=== PATIENT | female | born 2000 | race Caucasian/White ===

== ENCOUNTER 2024-12-01 11:35 | Inpatient (IN) ==
[2024-12-01] MEDS ORDERED: OXYTOCIN 30 UNITS/NSS 30 UNITS/500 ML BAG IV PRN (12:33)
[2024-12-01] MEDS ORDERED: LIDOCAINE 1% LOCAL 20 ML VIAL INFIL PRN (12:33)
[2024-12-01 13:10] LABS: Hematocrit (blood only) 36.3 % (37.0-47.0); Hemoglobin 12.3 g/dl (12.0-16.0); Mean Corpuscular Hemoglobin 31.1 pg (25.0-34.0); Mean Corpuscular Volume 91.7 fL (80.0-100.0); Platelet Count 189 K/uL (130-400); RDW Standard Deviation 47.3 fL (36.4-46.3); Red Blood Count 3.96 M/uL (4.20-5.40); White Blood Count 9.74 K/ul (4.8-10.8)
[2024-12-01] MEDS: LACTATED RINGER'S 1,000 ML IV PRN (13:12)
[2024-12-01] MEDS: OXYTOCIN 30 UNITS/NSS 30 UNITS/500 ML BAG IV PRN (13:25)
--- NOTE | 2024-12-01 13:29 | History & Physical Report ---
Date of Service December 01, 2024 Assessment & Plan (1) Normal labor: Plan: Pt is a at 38w 6d with hx of preeclampsia presenting for induction of labor Hx of delivery and preeclampsia in previous Routine labs ordered Pitocin ordered Epidural placement ordered Monitor tracing Expectant managment for labor Hep B nonimmune: Hep B vax recommended Admission and Anticipated Discharge Date Admission Date: December 01, 2024 History of Present Illness Primary Care Provider: Giana Earl MD Nic is a 24y/o female currently at 38w 6d with an MILAGROS 12/09/24 who is here for BP check and will be admitted for induction of labor. Her is complicated by hx of preeclampsia and delivery in previous . Currently not experiencing contractions; adequate movement; no fluid loss; no bloody show External FHT and external uterine monitors used; Category 1 tracing; FHT 130bpm with moderate variability, accelerations present, decelerations absent Had regular appointments with OB. Labs Lab Results OB Labs: Hgb 12.8 g/dl (12.0-16.0) 11/30/24 Hct 38.8 % (37.0-47.0) 11/30/24 MCV 93.9 fL (80.0-100.0) 11/30/24 Plt Count 185 K/uL (130-400) 11/30/24 Treponema pallidum Ab Negative (Negative) 09/18/24 Glucose 1 Hr 50 gm 144 mg/dl (70-130) H 09/18/24 OB Optional Labs: No Data to Display Labs Reviewed: Initial OB Labs 05/26/24 Blood Type & RH O positive Antibody Screen negative HCT/HGB 39.9/13.2 Platelets 287 Hep C IgG 13yrs+ Old non-reactive Pap Test per notes neg 12/2021 Chlamydia negative Gonorrhea negative Rubella immune RPR non-reactive Urine Culture/Screen 10,000-50,000 mixed shamir HBsAg non-reactive HIV non-reactive MCV 93.2 Other screens: cff-DNA: low risk as per patient Cystic Fibrosis: neg SMA: neg Review of Systems : Denies fever, chills, sweats Denies shortness of breath, difficulty breathing, chest pain, palpitations, chest pressure. Denies breast pain. Denies dysuria. Denies headache or changes in vision. Allergies Allergy/AdvReac Type Severity Reaction Status Date / Time apple Allergy Intermediate Swelling Verified 12/01/24 10:52 of Lip/Tongue/Throat carrot Allergy Intermediate Swelling Verified 12/01/24 10:52 of Lip/Tongue/Throat Horse/Equine Containing Allergy Intermediate Hives Verified 12/01/24 10:52 Products kiwi Allergy Intermediate Swelling Verified 12/01/24 10:52 of Lip/Tongue/Throat pollen extracts Allergy Mild Sneezing Verified 12/01/24 10:52 apple juice AdvReac Intermediate Agitated Uncoded 12/01/24 10:52 Home Medications Medication Instructions Recorded Confirmed Type aspirin 81 mg chewable tablet 81 mg PO DAILY 12/01/24 12/01/24 History (Aspirin Childrens) loratadine 10 mg tablet (Claritin) 10 mg PO DAILY 12/01/24 12/01/24 History vits no.124-ferrous fum 1 tab PO DAILY 12/01/24 12/01/24 History 27 mg iron-folic acid 800 mcg tablet ( Vitamin) Patient History Medical History Varicella vaccination 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) Migraine without aura and without status migrainosus, not intractable (08/06/16) Allergic rhinitis (08/20/15) ADHD (attention deficit hyperactivity disorder), 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) Surgical History S/P breast biopsy S/P wisdom tooth extraction Family History Mother Crohn's disease Grandmother (Maternal) Diabetes Father Hypercholesteremia Denies family history of Ovarian cancer Breast cancer Colorectal cancer Social History (Updated 11/30/24 @ 12:43 by Maria Isabel Vo RN) Smoking Status: Current every day smoker Tobacco Type: E-cigarettes / Vaping Do You Dip or Chew Tobacco: No; Hx Alcohol Use: No Hx Substance Use: No Preferred Language: New Zealander Communication Ability: Effective Hearing Ability: Normal Retail Consultant Required: No Beliefs That Will Affect Care: None marital status: marital status details: Linda Moraescarlton (27) [phone] Current Living Situation: Spouse and Family Current Living Situation Comment: lives with spouse, son, dogs, cats-spouse changing litter current occupational status: employed 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 Skin: warm, dry, intact HEENT: NC/AT, anicteric sclera, conjunctiva without injection Heart: S1/S2 heard, regular, no m/r/g Lungs: equal air entry bilaterally, no rales/rhonchi/wheezes Abd: Normoactive BS, soft, NT/ND, gravid uterus Ext: warm, no clubbing/cyanosis or edema Neuro: nonfocal, speech intact, no facial droop, moving all extremities on command : FHR cat 1: baseline 130, moderate variability, accelerations present, decelerations absent, rare contractions Results & Data Vital Signs (Past 12 Hours) Vital Signs Temp Pulse Resp BP 12/01/24 12:22 87 143/91 H 12/01/24 12:19 87 12/01/24 12:19 143/91 H 12/01/24 12:15 18 12/01/24 12:15 36.8 C 18 12/01/24 12:09 73 146/92 H 12/01/24 11:59 83 135/92 Supervising Physician Co-Signing Physician Notes Resident Physician Supervision Note: I interviewed and examined the patient. Discussed with Dr. Sidhu and agree with findings and plan as documented in the note. Any exceptions or clarifications are listed here: 24yo @ 38 10/21, IOL for preeclampsia without severe features. Elevated prot/creat ratio, BPs 140s-150s/90s, blood work wnl. Asymptomatic. IOL with pitocin. Documented By: Gardenia Mondragon DO Resident Activity Tracking Resident Involvement: Resident Care Provided Care Provided: OB Delivery
[2024-12-01 13:35] LABS: Alanine Aminotransferase 14.0 U/L (7-52); Albumin Globulin Ratio 1.1 (0.9-2); Alkaline Phosphatase 95.0 U/L (34-104); Anion Gap 7.0 (3-11); Bilirubin,Total 0.3 mg/dl (0.2-1.0); Blood Urea Nitrogen 8.0 mg/dl (6-23); Calcium 8.6 mg/dl (8.6-10.3); Carbon Dioxide 21.0 mmol/L (21-32); Chloride 108.0 mmol/L (98-107); Creatinine Clr Calc Pharmacy 159.4 ml/min; Globulin 2.8 gm/dl (2.5-4.0); Glucose 84.0 mg/dl (70-99(Fasting)); Potassium 4.1 mmol/L (3.5-5.1); Sodium 136.0 mmol/L (136-145); Total Protein 5.8 gm/dl (6.0-8.3)
[2024-12-01] MEDS ORDERED: ONDANSETRON INJ 2 MG/ML 2 ML VIAL IV PRN (19:01)
[2024-12-01] MEDS ORDERED: BUPIVACAINE 0.25% PF 30 ML VIAL EPI PRN (19:01)
[2024-12-01] MEDS ORDERED: NALOXONE HCL 1 MG in SODIUM CHLORIDE 0.9% 1,000 ML IV PRN (19:01)
[2024-12-01] MEDS ORDERED: NALOXONE HCL 0.4 MG/1 ML VIAL/CARP IV PRN (19:01)
[2024-12-01] MEDS ORDERED: diphenhydrAMINE 50 MG/ML VIAL IV PRN (19:01)
[2024-12-01] MEDS ORDERED: SODIUM CHLORIDE 0.9% PF INJ 10 ML VIAL EPI PRN (19:01)
[2024-12-01] MEDS ORDERED: ROPIVACAINE 0.5% PF 5 MG/ML 20 ML VIAL EPI PRN (19:01)
[2024-12-01] MEDS ORDERED: NALBUPHINE HCL INJ 10 MG/ML AMP IV PRN (19:01)
[2024-12-01] MEDS ORDERED: LIDOCAINE 2% MPF LOCAL 5 ML VIAL EPI PRN (19:01)
--- NOTE | 2024-12-01 19:01 | Anesthesiology Consultation ---
Date of Service December 01, 2024 Assessment & Plan ASA ASA2 Proposed Anesthesia Anesthesia Type: Labor Epidural Risk / Benefits Reviewed With: PT / POA / Parent / Guardian, Accepts Plan and Informed Consent Obtained History Height/Weight Height: 5 ft 4 in Weight: 115.836 kg Allergies Allergy/AdvReac Type Severity Reaction Status Date / Time apple Allergy Intermediate Swelling Verified 12/01/24 10:52 of Lip/Tongue/Throat carrot Allergy Intermediate Swelling Verified 12/01/24 10:52 of Lip/Tongue/Throat Horse/Equine Containing Allergy Intermediate Hives Verified 12/01/24 10:52 Products kiwi Allergy Intermediate Swelling Verified 12/01/24 10:52 of Lip/Tongue/Throat pollen extracts Allergy Mild Sneezing Verified 12/01/24 10:52 apple juice AdvReac Intermediate Agitated Uncoded 12/01/24 10:52 Medications Home Medications Medication Instructions Recorded Confirmed Last Taken aspirin 81 mg chewable tablet 81 mg PO DAILY 12/01/24 12/01/24 12/01/24 (Aspirin Childrens) loratadine 10 mg tablet (Claritin) 10 mg PO DAILY 12/01/24 12/01/24 12/01/24 vits no.124-ferrous fum 1 tab PO DAILY 12/01/24 12/01/24 12/01/24 27 mg iron-folic acid 800 mcg tablet ( Vitamin) Active Medications Generic Name Dose Route Start Last Admin Trade Name Freq PRN Reason Stop Dose Admin Fentanyl/Bupivacaine/Sodium Chlor 100 ml 12/01/24 19:01 12/01/24 19:51 Fentanyl 2 Mcg/Ml Bupivacaine 0.125%-Nss 100ml Bag EPI 12/02/24 19:00 100 ml PRN PRN Administration Pain R/T Labor Protocol Oxytocin 30 units in 500 mls @ 15 mls/hr 12/01/24 12:33 12/01/24 18:00 Pitocin 30 Units/Nss IV 12/03/24 12:32 0.9 units/hr .Q24H PRN 15 mls/hr Labor Induction/Augmentation Titration Protocol 0.9 UNITS/HR Lactated Ringer's 1,000 mls @ 125 mls/hr 12/01/24 12:33 12/01/24 19:30 Lr IV 12/03/24 12:32 Infused .Q8H PRN Infusion L&D Protocol Protocol Past Medical History Medical History Varicella vaccination 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) Migraine without aura and without status migrainosus, not intractable (08/06/16) Allergic rhinitis (08/20/15) ADHD (attention deficit hyperactivity disorder), 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) Exercise / Class Metabolic Activity II 4-5 Yardwork/Stairs/Walk up hill Past Family History Family History Mother Crohn's disease Grandmother (Maternal) Diabetes Father Hypercholesteremia Denies family history of Ovarian cancer Breast cancer Colorectal cancer Past Surgical History Surgical History S/P breast biopsy S/P wisdom tooth extraction Past Anesthesia History No Hx of Anesthesia Complications and No Family Hx of Anesthesia Complications History of PONV No Hx of PONV and No Hx of Motion Sickness Social History Smoking Status: Current every day smoker Do You Dip or Chew Tobacco: No Hx Alcohol Use: No Hx Substance Use: No Review of Systems denies fever/cough/ colds/ chest pain/ SOB/ RENE denies RENE Physical Exam Vital Signs Last Vital Signs Temp 36.7 C 12/01/24 19:30 Pulse 86 12/01/24 20:06 Resp 18 12/01/24 19:30 BP 157/83 H 12/01/24 20:06 Pulse Ox 95 12/01/24 20:04 ENMT Mouth: no TMJ abnormality and no dentition abnormality Thyromental Distance: > or= 3.5 Finger Breadths Mallampati Class: II Neck neck extension not limited Respiratory normal respiratory effort; no respiratory distress Auscultation: lungs clear to auscultation bilaterally Cardiovascular Rate/Rhythm: regular rate and regular rhythm Neurologic moves all extremities Psychiatric Orientation: alert and oriented x 3 Testing Laboratory Results 12/01/24 12:40 12/01/24 12:40 Blood Type O Positive 12/01/24 12:40 Antibody Screen NEGATIVE 12/01/24 12:40
[2024-12-01] MEDS: LIDOCAINE 2%/EPINEPHRINE 1:200,000 20 ML PF EPI STA (19:50)
[2024-12-01] MEDS: BUPIVACAINE 0.25% PF 30 ML VIAL EPI STA (19:50)
[2024-12-01] MEDS: fentANYL 2 MCG/ML BUPIVacaine 0.125%-NSS 100ML BAG EPI PRN (19:51)
[2024-12-01] MEDS: fentANYL 2 MCG/ML BUPIVacaine 0.125%-NSS 100ML BAG ONE (20:04)
[2024-12-01] MEDS: BUPIVACAINE 0.25% PF 30 ML VIAL ONE (20:04)
[2024-12-01] MEDS: SODIUM CHLORIDE 0.9% PF INJ 10 ML VIAL ONE (20:05)
[2024-12-01] MEDS: SODIUM CHLORIDE 0.9% PF INJ 10 ML VIAL EPI STA (20:05)
[2024-12-01] MEDS: LIDOCAINE 2%/EPINEPHRINE 1:200,000 20 ML PF ONE (20:05)
[2024-12-02] MEDS: TRANEXAMIC ACID / 0.7% NACL 1,000 MG/100 ML BAG IV STA (00:40)
--- NOTE | 2024-12-02 01:06 | Delivery Summary ---
Vaginal Delivery Summary Date of Service December 02, 2024 Vaginal Delivery Summary [facility] Vaginal Delivery Summary: Pre-delivery diagnoses: 24yo @ 39 0/7, IOL for preeclampsia without severe features Post-delivery diagnoses: same Procedure: spontaneous vaginal delivery Surgeon: Gardenia Mondragon DO Complications: none Findings: Viable male . Apgars: 7/9 . Weight pending, please see nursery records Estimated QBL: 300cc Description of delivery: The patient progressed to complete with epidural anesthesia. She then began to push. She spontaneously vaginally delivered a viable from the cephalic presentation. The head delivered in ANNIKA positi on. The anterior shoulder delivered, followed by the posterior shoulder, followed by the body. Upon delivery, baby was atonic, cord immediately clamped and cut and baby handed to nursery team - where spontaneous cry was heard. A segment was retained for cord gases. Cord blood was obtained. The placenta was delivered spontaneously intact with a 3-vessel cord. The uterus and vagina were swept of clots and debris. IV pitocin was given. Initially, uterus not firm - therefore fundal massage was performed, 1g TXA was given, and excellent hemostasis was achieved. The uterus became firm. The cervix, vagina, and perineum were inspected and no lacerations were noted. Excellent hemostasis was observed. The mother and baby are recovering in stable and good condition in the room. Sponge and instrument counts were correct x 2. Gardenia Mondragon DO [facility] Vaginal Delivery Charge Vaginal Delivery Codes: 41929 global code for the antepartum, delivery, and post- Delivery Type Details: [facility]
[2024-12-02] MEDS ORDERED: HYDROCORTISONE ACETATE 25 MG SUPP PR PRN (01:21)
[2024-12-02] MEDS ORDERED: OXYTOCIN 30 UNITS/NSS 30 UNITS/500 ML BAG IV PRN (01:21)
[2024-12-02 02:33] LABS: Base Excess Cord Venous Blood -2.2 mEq/L (-7.7-1.9); Cord Venous Blood PO2 25 mmHg (14.1-43.3); O2 Saturation Cord Venous Bld < 60.0 % (<68)
[2024-12-02 02:34] LABS: Base Excess Cord Arterial Bld -1.7 mEq/L (-9-1.8); CO2 Cord Arterial Blood 50 mmHg (39.1-73.5); HCO3 Cord Arterial Blood 25 mmol/L (19.7-28.5); Oxygen Sat Cord Arterial Blood < 60.0 % (<60); PO2 Cord Arterial Blood 20 mmHg (4.1-31.7); pH Cord Arterial Blood 7.31 (7.1-7.38)
[2024-12-02] MEDS: IBUPROFEN 600 MG TAB PO PRN (03:48)
[2024-12-02] MEDS: PRENATAL VITAMIN 1 TAB PO SCH (08:20)
[2024-12-02] MEDS: DOCUSATE SODIUM 100 MG CAP PO SCH (08:20)
[2024-12-02] MEDS: LORATADINE 10 MG TAB PO SCH (08:20)
[2024-12-02] MEDS: BENZOCAINE 20% SPRY 85 APPLN/85 GM CAN EXT PRN (08:26)
[2024-12-02] MEDS: BUPIVACAINE 0.25% PF 30 ML VIAL ONE (10:17)
[2024-12-02] MEDS: fentANYL 2 MCG/ML BUPIVacaine 0.125%-NSS 100ML BAG ONE (10:18)
[2024-12-02] MEDS: LIDOCAINE 2%/EPINEPHRINE 1:200,000 20 ML PF ONE (10:18)
[2024-12-02] MEDS: DIPHTHER/TETAN/PERTUS Vaccine (Tdap, Adol/Adult) 0.5mL IM ONE (10:20)
[2024-12-02] MEDS: ACETAMINOPHEN 325 MG TAB PO PRN (17:00)
--- NOTE | 2024-12-02 17:37 | Anesthesia Procedure Note ---
Date of Service December 02, 2024 Anesthesia Post Epidural Note Vital Signs Vital Signs: Temp Pulse Resp BP Pulse Ox O2 Del Method 36.9 C 92 H 18 159/92 H 97 Room Air 12/02/24 13:45 12/02/24 13:45 12/02/24 13:45 12/02/24 13:45 12/02/24 03:39 12/02/24 13:45 Pain Intensity Lower Abdomen: Pain Intensity: 7 Notes Mental Status: alert / awake / arousable and participated in evaluation Nausea / Vomiting: adequately controlled Pain: adequately controlled Airway Patency, RR, SpO2: stable & adequate BP & HR: stable & adequate Hydration State: stable & adequate Neuraxial Anesthesia: was administered and sensory block is resolving Anesthetic Complications: no major complications apparent Epidural: Removed without complications and With tip intact
--- NOTE | 2024-12-03 07:20 | Obstetrical Progress Note ---
Date of Service December 03, 2024 Assessment & Plan (1) Preeclampsia: (2) exam: Plan no s/s of worsening disease. bps have been in the mild range. Will watch through the day today and if pressures remain ok, patient would like to be d/c. s/s of pet reviewed. Will have a blood pressure check next week in the office. Day #:: 1 Subjective Ambulation: ambulating normally Voiding: no voiding problems Passing Gas:: Yes Diet Tolerance:: regular diet Lochia:: Small Feeding Type:: bottle feeding Overall feeling well, denies s/s of pet. Blood pressures have been in the mild range 140-150/80-90 Physical Exam Constitutional WD/WN, vitals as above Respiratory normal respiratory effort, lungs clear to auscultation Cardiovascular RRR, no murmur, no edema Extremities: + edema (tr); no calf tenderness Gastrointestinal (Abdomen) soft, nt, nd, ff/nt at u Psychiatric A+Ox3, euthymic affect Results & Data Vital Signs (Past 12 Hours) Vital Signs Temp Pulse Resp BP Pulse Ox O2 Del Method 12/03/24 00:00 36.7 C 67 16 146/85 H 98 Room Air 12/02/24 20:00 36.7 C 74 16 148/90 H 98 Room Air
[2024-12-03 07:23] LABS: Hematocrit (blood only) 34.9 % (37.0-47.0); Hemoglobin 11.9 g/dl (12.0-16.0)
--- NOTE | 2024-12-04 06:17 | Obstetrical Progress Note ---
Date of Service December 04, 2024 Assessment & Plan (1) exam: Plan: Nic Das is 24 y/o F post- day 2 s/p complicated by pre-eclampsia without severe features Fells well today. Vital signs stable Continue post- care Encourage ambulation and Pain controlled with ibuprofen Hgb stable Discharge home today, follow up with Dr. Mondragon in 6 weeks. Admission and Anticipated Discharge Date Admission Date: December 01, 2024 Anticipated date of discharge: 12/04/24 Supervising Physician Co-Signing Physician Notes Resident Physician Supervision Note: I interviewed and examined the patient. Discussed with Dr. Galvan and agree with findings and plan as documented in the note. Any exceptions or clarifications are listed here: Doing well. Pressures stable. d/c today. Instructions given. f/u this week in office for a blood pressure check. Documented By: Shante Rowland MD, FACOG Subjective Nic Das is a 24 y/o post- day 2 s/p Ambulation: ambulating normally Voiding: no voiding problems Passing Gas:: Yes Diet Tolerance:: regular diet Lochia:: Small Feeding Type:: breast feeding Current Pain Level: 5/10, managed well with current pain regimen Resting comfortably this AM in NAD. Denies BANDA, CP, SOB, N/V/D, LE pain/swelling. Review of Systems Review of Systems: All systems reviewed & are unremarkable except as noted in HPI & below Physical Exam Physical Exam: General: patient resting comfortably, NAD, non-toxic in appearance, AA&O x 4, answers questions appropriately. Skin: warm, dry, intact HEENT: NC/AT, anicteric sclera, conjunctiva without injection, moist mucus membranes. Heart: +S1/S2, regular, no m/r/g Lungs: equal air entry bilaterally, no rales/rhonchi/wheezes Abd: +BS, soft, NT/ND, uterine fundus firm below the level of the umbilicus. Ext: warm, no clubbing/cyanosis or edema, Raghu's neg. Neuro: nonfocal, patient AA&O x 4, speech intact, no facial droop, moving all extremities on command. Results & Data Vital Signs (Past 12 Hours) Vital Signs Temp Pulse Resp BP Pulse Ox O2 Del Method 12/03/24 20:00 36.8 C 74 16 146/86 H 100 Room Air 12/03/24 19:30 36.7 C 68 16 140/80 98 Room Air
[2024-12-04 08:46] VITALS: RESP 18
[2024-12-04 12:16] VITALS: PULSE 87; TEMP 98.1; O2SAT 98
[2024-12-04 19:24] VITALS: BP 142/90
== END 2024-12-04 19:31 | disposition home or self-care (01) | DRG 807 ==
LOC: OPB 11:35 → 4S1 11:37 → 4E2 12-02 03:38

== ENCOUNTER 2024-12-08 16:45 | Inpatient (IN) ==
[2024-12-08] MEDS: LIDOCAINE 2% JELLY 5 ML TUBE EXT ONE (18:23)
[2024-12-08] MEDS ORDERED: ONDANSETRON INJ 2 MG/ML 2 ML VIAL IV PRN (18:55)
--- NOTE | 2024-12-08 19:18 | History & Physical Report ---
Date of Service December 08, 2024 Assessment & Plan (1) Pre-eclampsia, severe: Plan: 24 yo PPD6 s/p now presenting with pre-eclampsia w/ severe features -BPs now mild range after IV labetalol x 1 and now on magnesium so will continue magnesium for 24hrs total. Will continue to monitor as baby is now getting re- admitted for bili and suspect there is stress component, consider labetalol PO if remains 150s. -AST was just barely elevated so will recheck labs in the AM -vera in place, will remain npo History of Present Illness Chief Complaint: Pre-eclampsia with severe features Primary Care Provider: Giana Earl MD 24 yo PPD6 s/p c/b pre-eclampsia w/o severe features was seen in the office for pp bp check. BP was 152/100, however had noted BANDA that has been relieved by tylenol but always comes back. In the office had frontal BANDA w/ vision changes, increased LE swelling. Due to symptoms was recommended for eval to start in ER. ER eval noted neg head ct and cxr. Pre-eclampsia labs were wnl, AST was just barely elevated at 43 but not severe range. BPs in the ER were 170/118 and repeat remains 160s/110s. Was recommended for IV labetalol 20 and started on magnesium and admitted for treatment Allergies Allergy/AdvReac Type Severity Reaction Status Date / Time apple Allergy Intermediate Swelling Verified 12/08/24 16:15 of Lip/Tongue/Throat carrot Allergy Intermediate Swelling Verified 12/08/24 16:15 of Lip/Tongue/Throat Horse/Equine Containing Allergy Intermediate Hives Verified 12/08/24 16:15 Products kiwi Allergy Intermediate Swelling Verified 12/08/24 16:15 of Lip/Tongue/Throat pollen extracts Allergy Mild Sneezing Verified 12/08/24 16:15 Home Medications Medication Instructions Recorded Confirmed Type loratadine 10 mg tablet (Claritin) 10 mg PO DAILY 12/01/24 12/08/24 History vits no.124-ferrous fum 1 tab PO DAILY 12/01/24 12/08/24 History 27 mg iron-folic acid 800 mcg tablet ( Vitamin) Patient History Medical History Varicella vaccination 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) Migraine without aura and without status migrainosus, not intractable (08/06/16) Allergic rhinitis (08/20/15) ADHD (attention deficit hyperactivity disorder), 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) Surgical History S/P breast biopsy S/P wisdom tooth extraction Family History Mother Crohn's disease Grandmother (Maternal) Diabetes Father Hypercholesteremia Denies family history of Ovarian cancer Breast cancer Colorectal cancer Social History (Updated 11/30/24 @ 12:43 by Maria Isaebl Vo RN) Smoking Status: Current every day smoker Tobacco Type: E-cigarettes / Vaping Cigarettes Per Day: nicotine vape; Do You Dip or Chew Tobacco: No; Hx Alcohol Use: No Hx Substance Use: No Preferred Language: Serbian Communication Ability: Effective Hearing Ability: Normal Boiler Room Helper Required: No Beliefs That Will Affect Care: None marital status: marital status details: Lidna Das (27) [phone] Current Living Situation: Family Current Living Situation Comment: lives with spouse, son, dogs, cats-spouse changing litter current occupational status: employed 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[employer] Other Information That Helps Us Care for You: No Feels Safe at Home: Yes Safety Concerns: Feels Safe At This Time Diet: regular Assistive Devices: None Results & Data Vital Signs (Past 12 Hours) Vital Signs Temp Pulse Resp BP Pulse Ox O2 Del Method 12/08/24 19:08 73 97 12/08/24 19:03 69 97 12/08/24 18:58 76 98 12/08/24 18:53 80 96 12/08/24 18:52 78 93 12/08/24 18:48 100 12/08/24 18:48 71 12/08/24 18:48 71 151/80 H 12/08/24 18:43 67 99 12/08/24 18:38 73 98 12/08/24 18:33 75 97 12/08/24 18:28 100 12/08/24 18:28 71 12/08/24 18:28 66 150/85 H 12/08/24 18:23 72 100 12/08/24 18:18 76 100 12/08/24 18:14 70 163/83 H 12/08/24 18:13 71 12/08/24 18:08 73 12/08/24 18:03 82 99 12/08/24 18:00 18 12/08/24 17:58 82 12/08/24 17:53 75 12/08/24 17:48 71 12/08/24 17:44 98.1 F 20 Room Air 12/08/24 17:43 68 12/08/24 17:38 70 12/08/24 17:33 74 12/08/24 17:28 77 100 12/08/24 17:23 77 12/08/24 17:18 86 12/08/24 17:14 70 146/83 H 12/08/24 17:13 67 99 Laboratory Results Laboratory Tests 12/08/24 14:45 Hgb 13.3 Hct 40.1 Plt Count 350 Creatinine 0.67 AST 43 H ALT [address]: FINDINGS: Brain parenchyma: No acute intracranial hemorrhage, midline shift or mass effect is present. Calvillo-white matter differentiation is preserved. There are no extra- axial fluid collections. There are no findings to suggest acute dural sinus thrombosis or acute territorial infarct. Ventricles, sulci, cisterns: There is no hydrocephalus. The basal cisterns are patent. Calvarium: Unremarkable. Sinuses and mastoids: The visualized paranasal sinuses are clear. The mastoid air cells are well pneumatized. Orbits: The bony orbits are grossly intact. IMPRESSION: No acute intracranial findings. CXR: IMPRESSION: 1. No acute cardiopulmonary findings. 2. Mild enlargement of the cardiac silhouette. Coding Level of Care Code None Diagnoses Pre-eclampsia, severe O14.10
[2024-12-08] MEDS: IBUPROFEN 600 MG TAB PO PRN (19:38)
[2024-12-08] MEDS: LACTATED RINGER'S 1,000 ML IV SCH (19:39)
[2024-12-09] MEDS: LABETALOL HCL 200 MG TAB PO SCH (00:49)
--- NOTE | 2024-12-09 07:51 | Obstetrical Progress Note ---
Date of Service December 09, 2024 Assessment & Plan (1) Pre-eclampsia, severe: Plan: 24 yo readmitted for pp pre-eclampsia w/ severe features -Started on labetalol 200 bid around midnight last night and normal bps since, will monitor today to see if will need held based on bp parameters but otherwise will monitor -good uop, awaiting am labs to confirm stability. noo s/s PIH otherwise -baby planning to be dc'd tomorrow so hopefully pt's bps remain stable as well for discharge Subjective BANDA from last night has resolved but now has BANDA from mag and feels different. Denies vision change, CP, SOB, RUQ/epigastric pain. Baby is doing better in the nursery as well from bili standpoint Physical Exam Constitutional: WD/WN, vitals as above Respiratory: normal respiratory effort; no respiratory distress and no labored breathing Results & Data Vital Signs (Past 12 Hours) Vital Signs Temp Pulse Resp BP Pulse Ox 12/09/24 07:39 67 91 12/09/24 07:38 85 94 12/09/24 07:34 77 97 12/09/24 07:29 72 94 12/09/24 07:27 68 131/77 12/09/24 07:24 95 12/09/24 07:24 73 12/09/24 07:24 76 94 12/09/24 07:19 75 94 12/09/24 07:18 76 94 12/09/24 07:14 76 96 12/09/24 07:13 73 93 12/09/24 07:09 78 92 12/09/24 07:06 75 94 12/09/24 07:04 76 93 12/09/24 07:01 74 94 12/09/24 06:59 76 94 12/09/24 06:57 67 116/64 12/09/24 06:55 74 94 12/09/24 06:54 68 95 12/09/24 06:50 66 94 12/09/24 06:49 68 95 12/09/24 06:44 65 95 12/09/24 06:43 68 94 12/09/24 06:39 65 94 12/09/24 06:38 69 93 12/09/24 06:34 66 94 12/09/24 06:31 65 94 12/09/24 06:29 67 94 12/09/24 06:27 62 123/69 07 06:26 69 94 07 06:24 69 94 12/09/24 06:21 67 94 12/09/24 06:19 69 94 12/09/24 06:16 67 94 12/09/24 06:14 65 94 12/09/24 06:11 64 94 12/09/24 06:09 68 94 12/09/24 06:06 63 94 12/09/24 06:04 73 94 12/09/24 06:01 69 94 12/09/24 05:59 66 95 12/09/24 05:57 65 18 144/72 H 12/09/24 05:54 70 95 12/09/24 05:53 71 93 12/09/24 05:49 68 94 12/09/24 05:47 72 93 12/09/24 05:44 72 94 12/09/24 05:42 69 94 12/09/24 05:39 65 94 12/09/24 05:36 63 94 12/09/24 05:34 64 95 12/09/24 05:30 65 93 12/09/24 05:29 64 95 12/09/24 05:27 60 116/62 12/09/24 05:24 63 96 12/09/24 05:19 64 95 12/09/24 05:14 60 95 12/09/24 05:09 60 96 12/09/24 05:04 62 96 12/09/24 05:00 61 94 12/09/24 04:59 61 95 12/09/24 04:57 64 18 119/64 12/09/24 04:54 60 95 12/09/24 04:49 78 94 12/09/24 04:44 94 12/09/24 04:44 63 07 04:44 64 94 12/09/24 04:39 63 94 12/09/24 04:38 65 94 12/09/24 04:34 64 94 12/09/24 04:32 67 94 12/09/24 04:29 65 95 12/09/24 04:27 58 L 122/63 07 04:26 66 94 07 04:24 65 94 12/09/24 04:20 69 94 12/09/24 04:19 63 96 12/09/24 04:15 63 94 12/09/24 04:14 62 96 12/09/24 04:10 70 93 12/09/24 04:09 66 95 12/09/24 04:04 72 94 12/09/24 04:03 76 94 12/09/24 03:58 67 94 12/09/24 03:57 18 12/09/24 03:57 97.9 F 65 18 128/66 12/09/24 03:53 71 96 12/09/24 03:48 64 94 12/09/24 03:43 61 94 12/09/24 03:38 61 95 12/09/24 03:37 63 94 12/09/24 03:33 62 94 12/09/24 03:29 61 94 12/09/24 03:28 62 95 12/09/24 03:27 60 106/53 L 12/09/24 03:24 61 93 12/09/24 03:23 59 L 95 12/09/24 03:18 94 12/09/24 03:18 59 L 12/09/24 03:18 60 94 12/09/24 03:13 58 L 95 12/09/24 03:12 59 L 94 12/09/24 03:08 58 L 95 12/09/24 03:07 78 93 12/09/24 03:03 61 95 12/09/24 02:58 61 96 12/09/24 02:57 66 97/52 L 12/09/24 02:54 63 93 12/09/24 02:53 65 94 12/09/24 02:48 63 94 12/09/24 02:43 95 12/09/24 02:43 61 12/09/24 02:43 60 93 12/09/24 02:38 64 94 12/09/24 02:37 63 94 12/09/24 02:33 61 93 12/09/24 02:32 63 94 12/09/24 02:28 62 93 12/09/24 02:27 64 117/59 L 12/09/24 02:26 59 L 94 12/09/24 02:23 63 94 12/09/24 02:18 62 93 12/09/24 02:17 64 94 12/09/24 02:13 65 93 12/09/24 02:08 61 94 12/09/24 02:03 69 94 12/09/24 01:58 70 94 12/09/24 01:57 18 12/09/24 01:57 64 18 113/61 12/09/24 01:56 67 93 12/09/24 01:53 70 94 12/09/24 01:50 69 94 12/09/24 01:48 72 92 12/09/24 01:43 68 92 12/09/24 01:38 68 92 12/09/24 01:33 68 92 12/09/24 01:28 66 94 12/09/24 01:27 64 129/64 12/09/24 01:26 67 93 12/09/24 01:23 66 94 12/09/24 01:20 68 94 12/09/24 01:18 63 95 12/09/24 01:13 65 95 12/09/24 01:08 61 96 12/09/24 01:03 63 96 12/09/24 00:58 55 L 97 12/09/24 00:57 18 12/09/24 00:57 60 18 134/78 12/09/24 00:54 67 93 12/09/24 00:53 63 94 12/09/24 00:48 62 97 12/09/24 00:43 64 96 12/09/24 00:38 63 97 12/09/24 00:33 60 98 12/09/24 00:28 97 12/09/24 00:28 61 12/09/24 00:28 70 156/97 H 12/09/24 00:27 78 90 12/09/24 00:23 67 97 12/09/24 00:22 71 94 12/09/24 00:18 72 96 12/09/24 00:17 76 93 12/09/24 00:13 66 97 12/09/24 00:08 60 97 12/09/24 00:03 64 97 12/08/24 23:58 61 97 12/08/24 23:57 64 18 153/75 H 12/08/24 23:53 63 97 12/08/24 23:48 58 L 97 12/08/24 23:43 57 L 98 12/08/24 23:38 63 98 12/08/24 23:33 59 L 97 12/08/24 23:28 74 98 12/08/24 23:27 68 149/80 H 12/08/24 23:23 59 L 97 12/08/24 23:18 59 L 97 12/08/24 23:13 73 97 12/08/24 23:08 66 96 12/08/24 23:03 74 95 12/08/24 22:58 84 95 12/08/24 22:56 78 154/83 H 94 12/08/24 22:55 97.9 F 77 18 167/81 H 12/08/24 22:53 75 94 12/08/24 22:50 79 93 12/08/24 22:48 82 97 12/08/24 22:43 74 95 12/08/24 22:40 81 94 12/08/24 22:38 79 96 12/08/24 22:33 89 94 12/08/24 22:28 90 96 12/08/24 22:23 79 95 12/08/24 22:22 76 94 12/08/24 22:21 71 142/69 H 12/08/24 22:18 79 96 12/08/24 22:16 81 94 12/08/24 22:13 86 95 12/08/24 22:11 79 94 12/08/24 22:08 80 95 12/08/24 22:04 78 94 12/08/24 22:03 73 95 12/08/24 21:59 80 94 12/08/24 21:58 83 95 12/08/24 21:53 78 96 12/08/24 21:52 74 93 12/08/24 21:51 68 18 135/75 12/08/24 21:48 71 97 12/08/24 21:47 73 94 12/08/24 21:43 71 95 12/08/24 21:40 73 94 12/08/24 21:38 72 94 12/08/24 21:35 71 94 12/08/24 21:33 70 95 12/08/24 21:30 73 94 12/08/24 21:28 73 95 12/08/24 21:24 77 94 12/08/24 21:23 78 95 12/08/24 21:20 71 140/72 12/08/24 21:19 72 94 12/08/24 21:18 69 94 12/08/24 21:14 69 94 12/08/24 21:13 68 95 12/08/24 21:09 65 94 12/08/24 21:08 64 96 12/08/24 21:03 70 93 12/08/24 21:02 68 137/68 12/08/24 21:01 69 94 12/08/24 20:58 69 93 12/08/24 20:56 65 92 12/08/24 20:53 68 94 12/08/24 20:48 67 94 12/08/24 20:45 70 94 12/08/24 20:44 71 18 177/81 H 12/08/24 20:43 77 95 12/08/24 20:40 77 93 12/08/24 20:38 75 93 12/08/24 20:33 66 95 12/08/24 20:28 96 12/08/24 20:28 65 12/08/24 20:28 68 94 12/08/24 20:23 61 95 12/08/24 20:22 61 94 12/08/24 20:18 68 96 12/08/24 20:14 68 142/70 H 12/08/24 20:13 69 96 12/08/24 20:08 67 97 12/08/24 20:03 65 97 12/08/24 19:58 67 97 12/08/24 19:53 65 97 12/08/24 19:48 65 96 PG Care Time/CCT Total # of Minutes Spent Total Time Spent with Patient: Total time spent is greater than 50% in coordination of care (as documented) at patient's floor/unit and/or counseling patient: Coding Level of Care Code 78004 SUB INP/OBS CARE 06/10MIN Diagnoses Pre-eclampsia, severe O14.10
[2024-12-09 07:59] LABS: Hematocrit (blood only) 39.1 % (37.0-47.0); Hemoglobin 12.9 g/dl (12.0-16.0); Mean Corpuscular Hemoglobin 30.6 pg (25.0-34.0); Mean Corpuscular Volume 92.9 fL (80.0-100.0); Platelet Count 322 K/uL (130-400); RDW Standard Deviation 47.9 fL (36.4-46.3); Red Blood Count 4.21 M/uL (4.20-5.40); White Blood Count 8.59 K/ul (4.8-10.8)
[2024-12-09] MEDS ORDERED: Nursing to Pharmacy Communication SCH (08:00)
[2024-12-09 08:16] LABS: Alanine Aminotransferase 48.0 U/L (7-52); Albumin Globulin Ratio 1.2 (0.9-2); Alkaline Phosphatase 91.0 U/L (34-104); Anion Gap 7.0 (3-11); Bilirubin,Total 0.4 mg/dl (0.2-1.0); Blood Urea Nitrogen 10.0 mg/dl (6-23); Calcium 8.3 mg/dl (8.6-10.3); Carbon Dioxide 25.0 mmol/L (21-32); Chloride 104.0 mmol/L (98-107); Creatinine Clr Calc Pharmacy 155.3 ml/min; Globulin 2.8 gm/dl (2.5-4.0); Glucose 96.0 mg/dl (70-99(Fasting)); Potassium 4.3 mmol/L (3.5-5.1); Sodium 136.0 mmol/L (136-145); Total Protein 6.2 gm/dl (6.0-8.3)
[2024-12-09] MEDS: MAGNESIUM SULFATE / WTR 40 GM/1,000 ML BAG IV SCH (12:07)
[2024-12-10] MEDS: ACETAMINOPHEN 325 MG TAB PO PRN (00:20)
[2024-12-10 00:38] LABS: Hemoglobin 13.1 g/dl (12.0-16.0); Red Blood Count 4.24 M/uL (4.20-5.40); White Blood Count 9.99 K/ul (4.8-10.8)
[2024-12-10 00:39] LABS: Hematocrit (blood only) 39.5 % (37.0-47.0); Immature Granulocytes # (auto) 0.05 K/uL (0.01-0.20); Immature Granulocytes % (auto) 0.5 %; Mean Corpuscular Hemoglobin 30.9 pg (25.0-34.0); Mean Corpuscular Volume 93.2 fL (80.0-100.0); Platelet Count 347 K/uL (130-400); RDW Standard Deviation 48.0 fL (36.4-46.3)
[2024-12-10 00:56] LABS: Alanine Aminotransferase 46.0 U/L (7-52); Albumin Globulin Ratio 1.0 (0.9-2); Alkaline Phosphatase 96.0 U/L (34-104); Anion Gap 9.0 (3-11); Bilirubin,Total 0.4 mg/dl (0.2-1.0); Blood Urea Nitrogen 14.0 mg/dl (6-23); Calcium 8.2 mg/dl (8.6-10.3); Carbon Dioxide 25.0 mmol/L (21-32); Chloride 102.0 mmol/L (98-107); Creatinine Clr Calc Pharmacy 130.1 ml/min; Globulin 3.3 gm/dl (2.5-4.0); Glucose 116.0 mg/dl (70-99(Fasting)); Potassium 4.2 mmol/L (3.5-5.1); Sodium 136.0 mmol/L (136-145); Total Protein 6.7 gm/dl (6.0-8.3)
[2024-12-10 12:21] VITALS: BP 126/74; PULSE 72; RESP 16; TEMP 98.2; O2SAT 97
--- NOTE | 2024-12-12 12:22 | Discharge Summary ---
Date of Service December 12, 2024 Admission HPI Per Admitting Provider 24 yo PPD6 s/p c/b pre-eclampsia w/o severe features was seen in the office for pp bp check. BP was 152/100, however had noted BANDA that has been relieved by tylenol but always comes back. In the office had frontal BANDA w/ vision changes, increased LE swelling. Due to symptoms was recommended for eval to start in ER. ER eval noted neg head ct and cxr. Pre-eclampsia labs were wnl, AST was just barely elevated at 43 but not severe range. BPs in the ER were 170/118 and repeat remains 160s/110s. Was recommended for IV labetalol 20 and started on magnesium and admitted for treatment Hospital Course (1) Pre-eclampsia, severe: Managed with 24hr IV magnesium and 200mg PO Labetalol BID, with good improvement in labs and BP as well as clinical symptoms. D/C to home with 1 wk BP follow up. Coding Level of Care Code 44725 IN/OBS DISCH 30 MIN/LESS Diagnoses Pre-eclampsia, severe O14.10
== END 2024-12-10 12:55 | disposition home or self-care (01) | DRG 776 ==
LOC: OPB 16:45 → 4S1 16:47 → 4E2 12-09 19:09